=== PATIENT | female | born 1955 | race Caucasian/White ===

== ENCOUNTER 2020-04-03 15:57 | Emergency (ER) | payer MEDICAID, MEDICARE ==
[~2020-04-03] VITALS: Ht 172.7 cm; Wt 99.7 kg
--- NOTE | 2020-04-03 17:09 | NUR ---
PT BACK FROM IMAGING
--- NOTE | 2020-04-03 17:40 | NUR ---
Patient/Caregiver given discharge instructions and they have confirmed that they understand the instructions. Patient ambulatory with steady gait.
[2020-04-03 17:41] VITALS: BP 114/85
== END 2020-04-03 17:42 | disposition home or self-care (01) ==
LOC: ED 17:35
DX: S09.90XA Unspecified injury of head, initial encounter (principal); F20.9 Schizophrenia, unspecified; F84.0 Autistic disorder; W01.198A Fall on same level from slipping, tripping and stumbling with subsequent striking against other object, initial encounter; Y93.89 Activity, other specified; Y92.488 Other paved roadways as the place of occurrence of the external cause; Y99.8 Other external cause status
CPT/HCPCS: 70450; 99284

== ENCOUNTER 2020-05-02 17:57 | Emergency (ER) | payer MEDICARE ==
[~2020-05-02] VITALS: Ht 167.6 cm; Wt 98.0 kg
[2020-05-02 18:44] VITALS: BP 134/82
--- NOTE | 2020-05-02 19:10 | NUR ---
Patient given discharge instructions and they have confirmed that they understand the instructions. Patient ambulatory with steady gait.
== END 2020-05-02 19:21 | disposition home or self-care (01) ==
LOC: ED 18:15
DX: F20.9 Schizophrenia, unspecified (principal); Z76.0 Encounter for issue of repeat prescription
CPT/HCPCS: 99281

== ENCOUNTER 2021-02-02 13:19 | Emergency (ER) | payer MEDICAID, MEDICARE ==
[~2021-02-02] VITALS: Ht 170.2 cm; Wt 99.4 kg
[2021-02-02 13:28] VITALS: BP 142/69
--- NOTE | 2021-02-02 14:50 | NUR ---
PT RESTING IN BED. PT BROTHER AT BEDSIDE. PT YELLING OUT FROM ROOM. PT HAS AUTISM, IS UNABLE TO CONTROL OUTBURST. PT ABLE TO ANSWER SOME QUESTIONS. PT NOT WANTING TO KEEP VITALS MONITORS ON.
--- NOTE | 2021-02-02 15:25 | NUR ---
PT WALKER BROUGHT IN FROM [employer]ING [employer]IN[employer]. PT DOOR CLOSED FOR PRIVACY.
== END 2021-02-02 15:46 | disposition home or self-care (01) ==
LOC: ED 15:30
DX: S06.5X1A Traumatic subdural hemorrhage with loss of consciousness of 30 minutes or less, initial encounter (principal); M54.2 Cervicalgia; W01.0XXA Fall on same level from slipping, tripping and stumbling without subsequent striking against object, initial encounter; Y93.89 Activity, other specified; Y92.410 Unspecified street and highway as the place of occurrence of the external cause; Y99.8 Other external cause status
CPT/HCPCS: 70450; 72125; 99285